=== PATIENT | female | born 1995 | race Caucasian/White ===

== ENCOUNTER 2022-10-11 02:56 | Observation (INO) | payer OTHER, MEDICAID, SELFPAY ==
[2022-10-11] VITALS (18 sets, daily range): BP systolic 118–167; BP diastolic 71–97; PULSE 48–69; RESP 15–24; TEMP 36.4–36.9; O2SAT 90–99; BMI 37.8
--- NOTE | 2022-10-11 02:57 | XRR_ITS ---
PROCEDURE INFORMATION: Exam: XR Chest Exam date and time: 10/11/2022 3:57 AM Age: 27 years old Clinical indication: Pain; Chest pressure; Additional info: Cp TECHNIQUE: Imaging protocol: Radiologic exam of the chest. Views: 1 view. COMPARISON: No relevant prior studies available. FINDINGS: Tubes, catheters and devices: Partially included right-sided ventriculoperitoneal shunt catheter. Lungs: Unremarkable. No consolidation. Pleural spaces: Unremarkable. No pleural effusion. No pneumothorax. Heart/Mediastinum: Unremarkable. No cardiomegaly. Bones/joints: Unremarkable. XR/XR chest 1V portable [id number] IMPRESSION: Negative for acute chest pathology.
--- NOTE | 2022-10-11 03:05 | USR_ITS ---
PROCEDURE INFORMATION: Exam: US Abdomen, Limited; Right Upper Quadrant Exam date and time: 10/11/2022 3:17 AM Age: 27 years old Clinical indication: Abdominal pain; Other: Ruq pain x 3 hrs. TECHNIQUE: Imaging protocol: Real time ultrasound of the abdomen with image documentation. Limited exam focused on the right upper quadrant. COMPARISON: No relevant prior studies available. FINDINGS: Liver: Normal. No masses. Gallbladder: Cholelithiasis. Negative for gallbladder wall thickening. Negative for pericholecystic fluid. Biliary ducts: Normal. No stones. No dilation. Pancreas: Visualized pancreas is unremarkable. Right kidney: Normal. No mass. No hydronephrosis. Aorta: Abdominal aorta is nonaneurysmal. Inferior vena cava: Normal diameter IVC. Portal venous: Portal vein is patent with flow direction. US/US gall bladder [id number] IMPRESSION: Cholelithiasis. No convincing secondary findings of acute cholecystitis.
--- NOTE | 2022-10-11 03:06 | ECG_ITS ---
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 Measurements Intervals [place] Rate: 69 P: 21 NE: 154 QRS: 22 QRSD: 82 T: 30 QT: 414 QTc: 446 Interpretive Statements SINUS RHYTHM No previous ECG available for comparison Electronically Signed On 10-12-2022 0:28:48 CDT by Blanca Chang M.D. [id number]
--- NOTE | 2022-10-11 03:06 | W.ED.ABDPA2 ---
HPI - Abdominal Pain General: Chief Complaint: Abdominal Pain Stated Complaint: chest discomfort, left abdomen pain Time Seen by Provider: 10/11/22 02:57 Source: patient Mode of arrival: ambulatory Limitations: no limitations History of Present Illness: 27-year-old female states she been having some abdominal pain over the last 2 to 3 hours. States pain is in her right upper quadrant and epigastric region. She states pain is sharp in nature she rates it an 8 out of 10 states it does radiate to her chest. She denies any worsening improving factors no history of abdominal surgeries. No diarrhea. Associated Symptoms: Reports nausea; Denies chills, dysuria and fever(s) Review of Systems Const: Denies: fever(s), chills, body aches or change in appetite Eyes: Denies: eye discomfort ENMT: Denies: throat pain or dental pain Card: Reports: chest pain Resp: Denies: dyspnea GI: Reports: abdominal pain and nausea : Denies: dysuria Musc: Denies: neck pain or back pain Skin/Breast: Denies: rash All/Imm: Denies: urticaria PFSH ED PFSH: Medical History (Updated 10/11/22 @ 04:49 by Chip Solorzano MD) No pertinent past medical history Social History (Updated 10/11/22 @ 03:06 by Chip Solorzano MD) Alcohol intake: never Physical Exam Const: COMMON NORMALS: no acute distress, patient oriented x3 and healthy appearing HENMT: COMMON NORMALS: normocephalic and atraumatic HEAD & SCALP: normocephalic and atraumatic Eye: COMMON NORMALS: conjunctivae normal CONJUNCTIVA: Yes conjunctivae normal Neck/C-Spine: COMMON NORMALS: full ROM and supple Chest: COMMONS NORMALS: normal inspection of the chest and normal palpation of entire chest wall Resp: COMMON NORMALS: normal respiratory effort, No retractions, No use of accessory muscles and clear to auscultation bilaterally AUSCULTATION: clear to auscultation bilaterally Cardio: COMMON NORMALS: regular rate, regular rhythm and No murmurs present (Cardio) RATE: regular rate RHYTHM: regular rhythm GI: COMMON NORMALS: Normal to inspection, nondistended, normoactive bowel sounds present, Soft to palpation and no masses PALPATION: Yes Soft to palpation and Yes Tenderness to palpation present (GI) Details: RUQ Extremity: COMMON NORMALS: normal to inspection and full ROM Neuro: COMMON NORMALS: patient oriented x3, moves all extremities and no focal motor deficits Psych: COMMON NORMALS: mental status grossly normal, Normal thought process present and cooperative THOUGHT PROCESS: Normal thought process present Skin: COMMON NORMALS: no rashes or lesions noted and no wounds GENERAL SKIN EXAM: no rashes or lesions noted Course Vital Signs: Vital signs: Vital Signs Temperature 97.5 F L 10/11/22 03:06 Pulse Rate 68 10/11/22 04:30 Respiratory Rate 19 H 10/11/22 04:30 Blood Pressure 158/89 10/11/22 04:30 Pulse Oximetry 96 10/11/22 04:30 Oxygen Delivery Me thod Nasal Cannula 10/11/22 04:30 Oxygen Flow Rate 2.5 10/11/22 04:30 MDM - Abdominal Pain Medical Decision Making Patient presents with abdominal pain her ultrasound here does show multiple gallstones no wall thickening. White count here is normal she is afebrile she is continue to have severe pain here even after IV meds. I spoke to the surgeon on-call Dr. Downey and will admit for observation at this time. Lab Data 10/11/22 03:10 10/11/22 03:10 Labs/Radiology: Laboratory Results WBC 11.1 10^3/uL (4.0-10.0) H 10/11/22 03:10 RBC 5.14 10^6/uL (4.1-5.3) 10/11/22 03:10 Hgb 15.0 g/dL (11.5-15.3) 10/11/22 03:10 Hct 43.5 % (37.0-47.0) 10/11/22 03:10 MCV 84.6 fl (81-99) 10/11/22 03:10 MCH 29.2 pg (28.0-34.0) 10/11/22 03:10 MCHC 34.5 g/dL (30.0-36.0) 10/11/22 03:10 RDW 12.8 % (12.1-15.1) 10/11/22 03:10 Plt Count 197 10^3/cmm (130-400) 10/11/22 03:10 MPV 11.8 fL (7.4-10.4) H 10/11/22 03:10 Neut % (Auto) 73.3 % 10/11/22 03:10 Lymph % (Auto) 20.9 % 10/11/22 03:10 [place] % (Auto) 4.6 % 10/11/22 03:10 Eos % (Auto) 0.3 % 10/11/22 03:10 Baso % (Auto) 0.4 % 10/11/22 03:10 Neut # (Auto) 8.12 10^3/uL (1.8-7.7) H 10/11/22 03:10 Lymph # (Auto) 2.3 10^3/uL (0.8-4.8) 10/11/22 03:10 [place] # (Auto) 0.5 10^3/uL (0.2-0.9) 10/11/22 03:10 Eos # (Auto) 0.0 10^3/uL (0.0-0.8) 10/11/22 03:10 Baso # (Auto) 0.0 10^3/uL (0.0-0.1) 10/11/22 03:10 Nucleated RBC % (auto) 0 % 10/11/22 03:10 Nucleated RBCs # 0.0 /100WBC 10/11/22 03:10 Sodium 136 mmol/L (136-145) 10/11/22 03:10 Potassium 4.4 mmol/L (3.5-5.1) 10/11/22 03:10 Chloride 104 mmol/L (98-107) 10/11/22 03:10 Carbon Dioxide 17 mmol/L (22-29) L 10/11/22 03:10 Anion Gap 19.4 (5-19) H 10/11/22 03:10 BUN 11 mg/dL (6-20) 10/11/22 03:10 Creatinine 0.6 mg/dL (0.5-0.9) 10/11/22 03:10 GFR Calculation 118.2 mL/min (90-130) 10/11/22 03:10 Glucose 174 mg/dL (65-115) H 10/11/22 03:10 Calculated Osmolality 286 mOsm/kg (285-295) 10/11/22 03:10 Calcium 9.9 mg/dL (8.5-10.5) 10/11/22 03:10 Total Bilirubin 0.4 mg/dL (0.15-1.2) 10/11/22 03:10 AST 25 U/L (0-32) 10/11/22 03:10 ALT 54 U/L (0-33) H 10/11/22 03:10 Alkaline Phosphatase 92 U/L (35-105) 10/11/22 03:10 Troponin T Baseline 6 ng/L (0-10) 10/11/22 03:10 Total Protein 7.4 g/dL (6.6-8.7) 10/11/22 03:10 Albumin 4.2 g/dL (3.5-5.2) 10/11/22 03:10 Globulin 3.2 g/dL (1.3-4.6) 10/11/22 03:10 Lipase 29 U/L (13-60) 10/11/22 03:10 HCG, Qual Negative (Negative) 10/11/22 03:10 Urine Color Yellow (Yellow) 10/11/22 04:17 Urine Appearance Clear (CLEAR) 10/11/22 04:17 Urine pH 5 (5-7) 10/11/22 04:17 Ur Specific [place] 1.020 (1.005-1.030) 10/11/22 04:17 Urine Protein Neg (Negative) 10/11/22 04:17 Urine Glucose (UA) 1+ (Normal) H 10/11/22 04:17 Urine Ketones Negative (Negative) 10/11/22 04:17 Urine Blood Neg (Negative) 10/11/22 04:17 Urine Nitrate Negative (Negative) 10/11/22 04:17 Urine Bilirubin Neg (Negative) 10/11/22 04:17 Urine Urobilinogen Neg mg/dL (Negative) 10/11/22 04:17 Ur Leukocyte Esterase Negative (Negative) 10/11/22 04:17 EKG Data EKG 1: EKG interpretation date: 10/11/22 EKG interpretation time: 03:06 Interpretation: nsr hr [address] or t wave abnormalities qrs 82 qtc 434 Discharge Plan Discharge Patient Disposition: Admitted As Inpatient Clinical Impression: Abdominal pain, Gallstone Coding Level of Care Code 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
[2022-10-11] MEDS: morphine 4 mg/mL SDV 1 mL IVP ×4 (03:14→12:00)
[2022-10-11] MEDS: ondansetron 2 mg/ML SDV 2 mL 4 MG IVP ×2 (03:14→15:53)
[2022-10-11 03:15] LABS: Basophils % 0.4 %; Eosinophils % 0.3 %; Hematocrit 43.5 % (37.0-47.0); Lymphocytes # 2.3 10^3/uL (0.8-4.8); Lymphocytes % 20.9 %; Mean Corpuscular HGB Conc 34.5 g/dL (30.0-36.0); Mean Corpuscular Hemoglobin 29.2 pg (28.0-34.0); Mean Corpuscular Volume 84.6 fl (81-99); Mean Platelet Volume 11.8 fL (7.4-10.4); Monocytes # 0.5 10^3/uL (0.2-0.9); Monocytes % 4.6 %; Neutrophils # 8.12 10^3/uL (1.8-7.7); Neutrophils % 73.3 %; Nucleated Red Blood Cells % 0 %; Platelet Count 197 10^3/cmm (130-400); Red Blood Count 5.14 10^6/uL (4.1-5.3); Red Cell Distribution Width 12.8 % (12.1-15.1); White Blood Count 11.1 10^3/uL (4.0-10.0)
[2022-10-11] MEDS: lidocaine 2% viscous 15 ML, aluminum-mag hydrox-simethicon 30 ML, sucralfate oral liq 1 GM PO (03:15)
[2022-10-11 03:32] LABS: Alanine Aminotransferase 54 U/L (0-33); Albumin Level 4.2 g/dL (3.5-5.2); Alkaline Phosphatase 92 U/L (35-105); Anion Gap 19.4 (5-19); Aspartate Amino Transferase 25 U/L (0-32); Blood Urea Nitrogen 11 mg/dL (6-20); Calcium 9.9 mg/dL (8.5-10.5); Carbon Dioxide 17 mmol/L (22-29); Chloride 104 mmol/L (98-107); Globulin 3.2 g/dL (1.3-4.6); Glomerular Filtration Rate 118.2 mL/min (90-130); Glucose 174 mg/dL (65-115); HCG, Serum Qual Negative (Negative); Lipase 29 U/L (13-60); Osmolality Calculated 286 mOsm/kg (285-295); Potassium 4.4 mmol/L (3.5-5.1); Sodium 136 mmol/L (136-145); Total Bilirubin 0.4 mg/dL (0.15-1.2); Total Protein 7.4 g/dL (6.6-8.7)
[2022-10-11 03:39] LABS: Troponin(5th) Baseline 6 ng/L (0-10)
[2022-10-11 04:26] LABS: Add Urine Microscopic? NO; Charge for UA Resulting for Rev
[2022-10-11 04:45] LABS: Bilirubin Urine Neg (Negative); Blood Urine Neg (Negative); Glucose Urine UA 1+ (Normal); Ketones Urine Negative (Negative); Leukocyte Esterase Urine Negative (Negative); Nitrate Urine Negative (Negative); Protein Urine Neg (Negative); Urine Appearance Clear (CLEAR); Urine Color Yellow (Yellow); Urobilinogen Urine Neg (Negative); pH Urine 5 (5-7)
[2022-10-11] MEDS: HYDROmorphone 1 mg/mL INJ 1 mL 0.5 MG IVP (04:59)
[2022-10-11] MEDS: piperacillin-tazobactam 3.375 GM in sodium chloride 0.9% (plus) 50 ML IV ×3 (04:59→15:50)
--- NOTE | 2022-10-11 05:54 | PC.NURSE ---
Vital Signs: 145/90 Blood Pressure 52 pulse 99 O2 on 1L 97.8 Orally
--- NOTE | 2022-10-11 05:55 | PC.NURSE ---
Vital Signs: 145/90 Blood Pressure 52 pulse 99 O2 on 1L 97.8 Orally 16 respirations Patient laying supine on back.
[2022-10-11] MEDS: sodium chloride 0.9% 1,000 ML 100 ML IV (06:40)
[2022-10-11 07:03] LABS: Glucose Point of Care 164 mg/dL (70-110)
--- NOTE | 2022-10-11 08:49 | ECG_ITS ---
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 Measurements Intervals [place] Rate: 46 P: 30 UT: 174 QRS: 19 QRSD: 79 T: 57 QT: 474 QTc: 416 Interpretive Statements SINUS BRADYCARDIA Compared to ECG 10/11/2022 03:06:07 Sinus rhythm no longer present Electronically Signed On 10-12-2022 0:29:13 CDT by Blanca Chang M.D. [email or web address]ont[facility] campusOdyssey [email or web address]/store/[id number]
[2022-10-11 12:29] LABS: Glucose Point of Care 126 mg/dL (70-110)
--- NOTE | 2022-10-11 13:31 | CTR_ITS ---
PROCEDURE INFORMATION: Exam: CT Abdomen And Pelvis With Contrast Exam date and time: 10/11/2022 3:29 PM Age: 27 years old Clinical indication: Abdominal pain; Additional info: Abdominal pain, iv and oral TECHNIQUE: Imaging protocol: Computed tomography of the abdomen and pelvis with contrast. Radiation optimization: All CT scans at this facility use at least one of these dose optimization techniques: automated exposure control; mA and/or kV adjustment per patient size (includes targeted exams where dose is matched to clinical indication); or iterative reconstruction. Contrast material: OMNI 350; Contrast volume: 100 ml; Contrast route: INTRAVENOUS (IV); Other contrast: Oral, OMNI 350, 50; REPORTING DATA: Count of CT and Cardiac NM exams in prior 12 months: This patient has received 0 known CTs and 0 known cardiac nuclear medicine studies in the 12 months prior to the current study. COMPARISON: US gall bladder [id number] 10/11/2022 3:17 AM RADIATION DOSE METRICS: Total DLP (mGy-cm): 1062.47 FINDINGS: Tubes, catheters and devices: A CLOTH EXAMINER shunt catheter is seen on the right side. Lungs: Mild basilar atelectasis is suggested. Liver: Normal. No mass. Gallbladder and bile ducts: Gallstones on gallbladder ultrasound are not readily identified on CT exam. Gallbladder is otherwise unremarkable. No biliary ductal dilatation. Pancreas: Normal. No ductal dilation. Spleen: Normal. No splenomegaly. Adrenal glands: Normal. No mass. Kidneys and ureters: Normal. No hydronephrosis. Stomach and bowel: The cecum extends into the lower right pelvis without definite identification of the appendix without pericecal inflammatory change. Underdistended or collapsed distal ileum versus mild submucosal edema. No abnormal adjacent mesenteric stranding. Remainder of the bowel appears unremarkable without mucosal thickening or wall thickening. No bowel dilatation or obstruction. Appendix: See Stomach and bowel finding. Intraperitoneal space: No free air. Vasculature: Unremarkable. No abdominal aortic aneurysm. Lymph nodes: Unremarkable. No enlarged lymph nodes. Urinary bladder: Unremarkable as visualized. Reproductive: Oval-shaped hypodense focus of fluid density is seen within the posterior right adnexal region suggestive of right ovarian cyst approximately 6.5 x 4.5 x 4 cm. Mild free fluid is seen in the cul-de-sac as well. Bones/joints: No acute osseous abnormality. Soft tissues: Tiny umbilical hernia of fat. CT/CT abdomen pelvis w con* [id number] IMPRESSION: 1. CLOTH EXAMINER shunt catheter is seen on the right side. 2. Mild basilar atelectasis. 3. Gallstones that were seen on gallbladder ultrasound are not readily identified with CT exam. Gallbladder is otherwise unremarkable and no biliary ductal dilatation. 4. Suggestion of hypodense cyst of the right ovary within the posterior right adnexal region of approximally 6.5 x 4.5 x 4 cm. Along with mild free fluid within the dependent pelvis. 5. Underdistended or collapsed distal ileum versus mild submucosal edema, without adjacent mesenteric stranding. Mild inflammation not excluded.
[2022-10-11] MEDS: pantoprazole 40 mg SDV IVP (13:56)
[2022-10-11] MEDS: HYDROmorphone 1 mg/mL INJ 1 mL IVP ×2 (13:56→17:14)
[2022-10-11] MEDS: iohexol 350 mg/mL 500 mL Btl (per mL) PO (15:17)
[2022-10-11] MEDS: iohexol 350 mg/mL 500 mL Btl (per mL) IV (15:39)
[2022-10-11] MEDS: sodium chloride 0.9% 1,000 ML 125 ML IV (15:48)
[2022-10-11 16:58] LABS: Glucose Point of Care 115 mg/dL (70-110)
[2022-10-11] MEDS: sucralfate 1 gm/10 mL Oral Liq UDC PO ×2 (17:10→21:11)
--- NOTE | 2022-10-11 17:40 | P.HP_ITS ---
Providers/Chief Complaint Admitting Physician: Doron Downey DO Primary Care Provider: DANIEL Leal Chief Complaint: chest discomfort, left abdomen pain History of Present Illness Yessica Michel is a 27 year old female who presented to the hospital with sudden onset epigastric and left upper quadrant pain. She reports that this is the fourth time this is happened in the last 6 months. It wakes her up at night with severe stabbing pain. The pain radiates to her back. She reports nausea but denies any emesis. Palpation makes the pain worse. Nothing makes pain bet ter. Denies any diarrhea or constipation. Gallbladder ultrasound reveals only cholelithiasis and CT the abdomen reveals a right ovarian cyst with fluid in the cul-de-sac. She has a history of PCOS. Review of Systems General: Reports: 10 or more systems reviewed and unremarkable except in HPI and below Medications/Allergies Home Medications Medication Instructions Recorded Confirmed Last Taken Type amoxicillin 875 mg-potassium 1 tab PO BID 10/11/22 10/11/22 Unknown History clavulanate 125 mg tablet ergocalciferol (vitamin D2) 1,250 50,000 unit PO Q7D 10/11/22 10/11/22 Unknown History mcg (50,000 unit) capsule loratadine 10 mg tablet 10 mg PO DAILY 10/11/22 10/11/22 Unknown History norgestimate 0.25 mg-ethinyl 1 tab PO QAM 10/11/22 10/11/22 Unknown History estradiol 35 mcg tablet (Josephine) propylhexedrine (Benzedrex nasal 2 inh intranasal Q4H PRN Allergy 10/11/22 10/11/22 Unknown History inhaler) Symptoms sertraline 50 mg tablet 75 mg PO QAM 10/11/22 10/11/22 Unknown History tirzepatide 2.5 mg/0.5 mL 2.5 mg SUBCUT Q7D 10/11/22 10/11/22 Unknown History subcutaneous pen injector (Mounjaro) Allergies Allergy/AdvReac Type Severity Reaction Status Date / Time glimepiride Allergy ADR-Shakine Verified 10/11/22 09:05 ss glyburide Allergy ADR-Shakine Verified 10/11/22 09:05 ss PFSH Acute PFSH: Medical History No pertinent past medical history Social History Alcohol intake: never Vitals/I&O/Wt Last Vital Signs Temp 97.5 F L 10/11/22 03:06 Pulse 48 L 10/11/22 14:00 Resp 18 10/11/22 17:14 BP 140/77 10/11/22 05:26 Pulse Ox 96 10/11/22 08:24 O2 Del Method Nasal Cannula 10/11/22 06:03 O2 Flow Rate 2 10/11/22 08:00 10/11/22 10/11/22 10/11/22 06:59 14:59 22:59 Intake Total 50 / 50 50 / 50 913.333 / 963.333 Balance 50 / 50 50 / 50 913.333 / 963.333 Weight last 48 hrs Weight 223 lb Weight 220 lb Physical Exam Narrative: General : Patient is well developed , no acute distress, oriented x3 Head : Normal cephalic, a-traumatic. Ears : Pinnae and external canal are normal. Hearing is normal. Eyes : PERRLA, Sclera and injection are normal. No conjunctival discharge. Nose : Mucous membranes are without erythema. Throat : buccal mucosa is normal, gums are without significant recession or hypertrophy. Lungs : Equal chest rise bilaterally, no use of accessory muscles, trachea is midline. Cor : Rate and rhythm are normal. Abdomen : Soft, ND, tender over epigastrium and left upper quadrant, no g/r/m Extremities : No edema, no cyanosis or clubbing, dorsalis pedis pulses are present bilaterally, non-tender to palpation of calves. Upper extremities are normal bilaterally. Back : non-tender to palpation, no CVA tenderness. Neuro : CN II - XII intact, Upper and lower extremities have equal and full strength Data 10/12/22 07:50 10/12/22 07:50 A&P Assessment and plan (1) Abdominal pain: (2) Ruptured ovarian cyst: Plan Observation Pain control We will reevaluate in the morning Attestations Medical Necessity Statement*: Patient reports at least 1 night in the hospital for pain control and observation to be certain that she is not having acute cholecystitis. Coding Level of Care Code Acute Code for [facility] Diagnoses Abdominal pain R10.9 Ruptured ovarian cyst N83.209
[2022-10-11 20:14] LABS: Glucose Point of Care 121 mg/dL (70-110)
[2022-10-12] VITALS (11 sets, daily range): BP systolic 102–149; BP diastolic 64–82; PULSE 50–89; RESP 15–20; TEMP 36.6–36.9; O2SAT 94–98
[2022-10-12] MEDS: sodium chloride 0.9% 1,000 ML 125 ML IV ×2 (00:06→06:37)
[2022-10-12] MEDS: piperacillin-tazobactam 3.375 GM in sodium chloride 0.9% (plus) 50 ML IV ×2 (00:06→09:34)
[2022-10-12] MEDS: HYDROmorphone 1 mg/mL INJ 1 mL IVP ×4 (01:23→14:23)
[2022-10-12] MEDS: pantoprazole 40 mg SDV IVP ×2 (01:23→14:23)
[2022-10-12] MEDS: ondansetron 2 mg/ML SDV 2 mL 4 MG IVP ×2 (01:24→10:15)
[2022-10-12 06:10] LABS: Glucose Point of Care 129 mg/dL (70-110)
[2022-10-12] MEDS: sucralfate 1 gm/10 mL Oral Liq UDC PO ×2 (06:37→10:14)
[2022-10-12 08:09] LABS: Basophils % 0.2 %; Eosinophils % 0.3 %; Hematocrit 40.5 % (37.0-47.0); Hemoglobin 13.8 g/dL (11.5-15.3); Lymphocytes # 2.2 10^3/uL (0.8-4.8); Lymphocytes % 22.9 %; Mean Corpuscular HGB Conc 34.1 g/dL (30.0-36.0); Mean Corpuscular Hemoglobin 29.8 pg (28.0-34.0); Mean Corpuscular Volume 87.5 fl (81-99); Mean Platelet Volume 11.8 fL (7.4-10.4); Monocytes # 0.7 10^3/uL (0.2-0.9); Monocytes % 6.9 %; Neutrophils % 69.4 %; Nucleated Red Blood Cells % 0 %; Platelet Count 161 10^3/cmm (130-400); Red Blood Count 4.63 10^6/uL (4.1-5.3); Red Cell Distribution Width 13.4 % (12.1-15.1); White Blood Count 9.7 10^3/uL (4.0-10.0)
[2022-10-12 08:24] LABS: Anion Gap 14.2 (5-19); Blood Urea Nitrogen 8 mg/dL (6-20); Calcium 8.6 mg/dL (8.5-10.5); Carbon Dioxide 22 mmol/L (22-29); Chloride 105 mmol/L (98-107); Glomerular Filtration Rate 118.2 mL/min (90-130); Glucose 129 mg/dL (65-115); Osmolality Calculated 284 mOsm/kg (285-295); Potassium 4.2 mmol/L (3.5-5.1); Sodium 137 mmol/L (136-145)
--- NOTE | 2022-10-12 09:41 | PC.NURSE ---
tenderness pain in ovary areas.
--- NOTE | 2022-10-12 10:52 | PC.CHAP ---
Pastoral Care Encounter/Spiritual Assessment Type of Contact [] Declined typesetting machine operator/tender visit [] Patient/Family/Request visit [] Outpatient visit [] Follow-up visit [] Physician referral [] Code/Alert [x] Routine visit [] Staff referral [] Actively dying [] Patient sleeping [] Family support [] [] Out of room [] Palliative care [] [] Receiving care in room [] Pre-surgical visit [] Trauma [] Long length of stay [] ICU visit [] Other: Relational/Emotional Strength x [] Patient feels connected with others/family/visitors/staff [] Distress [] Loneliness/isolation [] Abandonment Spirituality of Patient [] Person of Julia [] Attends Lutheran of their Julia [x] Believes in Prayer [] Reads Bible or Yazdanism materials [] There are Spiritual issues to be addressed Machine Attendant Interventions [x] Prayer [] Active listening [] Non-anxious presence [] Spiritual/emotional support [] Crisis/trauma care [] Spiritual counseling [] Bereavement support [] Provided bereavement packet [] Provided Bible/devotional materials [] Provided toy/stuffed animal, coloring book to patient or family member [] Provided Communion [] Anointing/[place] [] Salvation [x] Completed spiritual assessment [] Other: Impact on Illness or Injury [] Angry [] Fearful [] Anxious [] Often cries [] Exhaustion [] Unable to work [] Unable to attend denominational [] Unable to walk/stand [] Unable to read [] Unable to drive [] Unable to eat/drink [] Unable to sleep [] Unable to be with family [] Patient intubated [] Other: Summary Time spent with patient 10 min
[2022-10-12 11:30] LABS: Glucose Point of Care 111 mg/dL (70-110)
--- NOTE | 2022-10-12 15:07 | P.DS_ITS ---
Discharge Providers Date of Admission: 10/11/22 05:03 Date of Discharge: October 12, 2022 Attending Provider at Admission: Doron Downey DO Attending Provider at Discharge: Doron Downey DO Primary Care Provider: DANIEL Leal Diagnoses at Discharge Discharge Diagnosis (1) Abdominal pain: Status: Acute (2) Ruptured ovarian cyst: Status: Acute Reason for Visit Reason for Visit: chest discomfort, left abdomen pain Hospital Course Hospital Course This is a very pleasant 27-year-old female who presented to the hospital with sudden onset abdominal pain. Original work-up in the ER indicated possible a cute calculus cholecystitis. Further work-up revealed likely a ruptured ovarian cyst causing significant pain. She was discharged home in good condition. Physical Exam Narrative: General : Patient is well developed , no acute distress, oriented x3 Head : Normal cephalic, a-traumatic. Ears : Pinnae and external canal are normal. Hearing is normal. Eyes : PERRLA, Sclera and injection are normal. No conjunctival discharge. Nose : Mucous membranes are without erythema. Throat : buccal mucosa is normal, gums are without significant recession or hypertrophy. Lungs : Equal chest rise bilaterally, no use of accessory muscles, trachea is midline. Cor : Rate and rhythm are normal. Abdomen : Soft, ND, mild left upper quadrant tenderness, no g/r/m Extremities : No edema, no cyanosis or clubbing, dorsalis pedis pulses are present bilaterally, non-tender to palpation of calves. Upper extremities are normal bilaterally. Back : non-tender to palpation, no CVA tenderness. Neuro : CN II - XII intact, Upper and lower extremities have equal and full strength Discharge Data Studies Completed and Pending Completed Studies During Hospitalization Category Date Time Status CT abdomen pelvis w con* [id number] Stat Cat Scan 10/11/22 13:31 Completed XR chest 1V portable [id number] Stat Exams 10/11/22 02:57 Completed US gall bladder [id number] Stat Ultrasound 10/11/22 03:05 Completed Radiology Impressions Chest X-Ray 10/11/22 02:57 IMPRESSION: Negative for acute chest pathology. Gallbladder Ultrasound 10/11/22 03:05 IMPRESSION: Cholelithiasis. No convincing secondary findings of acute cholecystitis. Abdomen/Pelvis CT 10/11/22 13:31 IMPRESSION: 1. CAD APPLICATION SUPPORT SPECIALIST shunt catheter is seen on the right side. 2. Mild basilar atelectasis. 3. Gallstones that were seen on gallbladder ultrasound are not readily identified with CT exam. Gallbladder is otherwise unremarkable and no biliary ductal dilatation. 4. Suggestion of hypodense cyst of the right ovary within the posterior right adnexal region of approximally 6.5 x 4.5 x 4 cm. Along with mild free fluid within the dependent pelvis. 5. Underdistended or collapsed distal ileum versus mild submucosal edema, without adjacent mesenteric stranding. Mild inflammation not excluded. Laboratory Results WBC 9.7 10^3/uL (4.0-10.0) 10/12/22 07:50 RBC 4.63 10^6/uL (4.1-5.3) 10/12/22 07:50 Hgb 13.8 g/dL (11.5-15.3) 10/12/22 07:50 Hct 40.5 % (37.0-47.0) 10/12/22 07:50 MCV 87.5 fl (81-99) 10/12/22 07:50 MCH 29.8 pg (28.0-34.0) 10/12/22 07:50 MCHC 34.1 g/dL (30.0-36.0) 10/12/22 07:50 RDW 13.4 % (12.1-15.1) 10/12/22 07:50 Plt Count 161 10^3/cmm (130-400) 10/12/22 07:50 MPV 11.8 fL (7.4-10.4) H 10/12/22 07:50 Neut % (Auto) 69.4 % 10/12/22 07:50 Lymph % (Auto) 22.9 % 10/12/22 07:50 [place] % (Auto) 6.9 % 10/12/22 07:50 Eos % (Auto) 0.3 % 10/12/22 07:50 Baso % (Auto) 0.2 % 10/12/22 07:50 Neut # (Auto) 6.70 10^3/uL (1.8-7.7) 10/12/22 07:50 Lymph # (Auto) 2.2 10^3/uL (0.8-4.8) 10/12/22 07:50 [place] # (Auto) 0.7 10^3/uL (0.2-0.9) 10/12/22 07:50 Eos # (Auto) 0.0 10^3/uL (0.0-0.8) 10/12/22 07:50 Baso # (Auto) 0.0 10^3/uL (0.0-0.1) 10/12/22 07:50 Nucleated RBC % (auto) 0 % 10/12/22 07:50 Nucleated RBCs # 0.0 /100WBC 10/12/22 07:50 Sodium 137 mmol/L (136-145) 10/12/22 07:50 Potassium 4.2 mmol/L (3.5-5.1) 10/12/22 07:50 Chloride 105 mmol/L (98-107) 10/12/22 07:50 Carbon Dioxide 22 mmol/L (22-29) 10/12/22 07:50 Anion Gap 14.2 (5-19) 10/12/22 07:50 BUN 8 mg/dL (6-20) 10/12/22 07:50 Creatinine 0.6 mg/dL (0.5-0.9) 10/12/22 07:50 GFR Calculation 118.2 mL/min (90-130) 10/12/22 07:50 Glucose 129 mg/dL (65-115) H 10/12/22 07:50 POC Glucose 111 mg/dL (70-110) H 10/12/22 11:19 Calculated Osmolality 284 mOsm/kg (285-295) L 10/12/22 07:50 Calcium 8.6 mg/dL (8.5-10.5) 10/12/22 07:50 Magnesium 2.0 mg/dL (1.7-2.3) 10/12/22 07:50 Total Bilirubin 0.4 mg/dL (0.15-1.2) 10/11/22 03:10 AST 25 U/L (0-32) 10/11/22 03:10 ALT 54 U/L (0-33) H 10/11/22 03:10 Alkaline Phosphatase 92 U/L (35-105) 10/11/22 03:10 Troponin T Baseline 6 ng/L (0-10) 10/11/22 03:10 Total Protein 7.4 g/dL (6.6-8.7) 10/11/22 03:10 Albumin 4.2 g/dL (3.5-5.2) 10/11/22 03:10 Globulin 3.2 g/dL (1.3-4.6) 10/11/22 03:10 Lipase 29 U/L (13-60) 10/11/22 03:10 HCG, Qual Negative (Negative) 10/11/22 03:10 Urine Color Yellow (Yellow) 10/11/22 04:17 Urine Appearance Clear (CLEAR) 10/11/22 04:17 Urine pH 5 (5-7) 10/11/22 04:17 Ur Specific [place] 1.020 (1.005-1.030) 10/11/22 04:17 Urine Protein Neg (Negative) 10/11/22 04:17 Urine Glucose (UA) 1+ (Normal) H 10/11/22 04:17 Urine Ketones Negative (Negative) 10/11/22 04:17 Urine Blood Neg (Negative) 10/11/22 04:17 Urine Nitrate Negative (Negative) 10/11/22 04:17 Urine Bilirubin Neg (Negative) 10/11/22 04:17 Urine Urobilinogen Neg mg/dL (Negative) 10/11/22 04:17 Ur Leukocyte Esterase Negative (Negative) 10/11/22 04:17 Procedures Performed None Vitals Last Vital Signs Temp 97.9 F 10/12/22 12:00 Pulse 70 10/12/22 12:00 Resp 18 10/12/22 14:23 BP 102/64 10/12/22 12:00 Pulse Ox 98 10/12/22 12:00 O2 Del Method Nasal Cannula 10/12/22 04:00 O2 Flow Rate 2 10/11/22 08:00 Discharge Plan Discharge Patient Disposition: Home Condition: Stable Prescriptions: New oxycodone-acetaminophen 5-325 mg tablet 1 tab PO Q6H PRN (Reason: pain) Qty: 14 0RF Continued Josephine 0.25-35 mg-mcg tablet 1 tab PO QAM Benzedrex Inhaler 2 inh INTRANASAL Q4H PRN (Reason: Allergy Symptoms) ergocalciferol (vitamin D2) 1,250 mcg (50,000 unit) capsule 50,000 unit PO Q7D Rx Instructions: on mon sertraline 50 mg tablet 75 mg PO QAM loratadine 10 mg tablet 10 mg PO DAILY Rx Instructions: (rx filled 10/10/22 not started as of 10/11/22) amoxicillin-pot clavulanate 875-125 mg tablet 1 tab PO BID Rx Instructions: for 10 days (rx filled 10/10/22 not started as of 10/11/22) Mounjaro 2.5 mg/0.5 mL pen injector 2.5 mg SUBCUT Q7D Rx Instructions: on mon Discharge Orders: Discharge Order (Routine); Ordered 10/12/22 Ordered By: Doron Downey Referrals: Mathew Davidson FNP [Primary Care Provider] - 4-7 days Discharge Diet: Advance as tolerated Discharge Activity: Resume usual activity Patient Instructions: Abdominal Pain (ED), Opioid Safety Discharge Attestations Time Spent in Discharge Care*: less than 30 min Quality Metrics Clinical Quality Measures [ No reported AMI, CVA or VTE this stay] Coding Level of Care Code Acute Code for Chg Fwd Diagnoses Abdominal pain R10.9 Ruptured ovarian cyst N83.209
== END 2022-10-12 16:36 | disposition home or self-care (01) ==
LOC: ER 04:49 → MEDSURG 05:03
PROVIDERS: Admitting Provider Surgery; Emergency Provider Emergency Medicine; PCP Nurse Practitioner Family; Visit Provider Surgery
DX: N83.201 Unspecified ovarian cyst, right side (principal); K80.20 Calculus of gallbladder without cholecystitis without obstruction; Z79.899 Other long term (current) drug therapy; R10.11 Right upper quadrant pain; R10.13 Epigastric pain; K66.1 Hemoperitoneum; R11.0 Nausea
CPT/HCPCS: 36415; 36416; 71045; 74177; 76705; 80048; 80053; 81003; 82962; 83690; 83735; 84484; 84703; 85025; 93005; 96374; 96375; 99285; C9113; G0378; J1170; J2270; J2405; J2543; J7030; Q9967

== ENCOUNTER → 2022-11-01 09:06 | Outpatient (BNVA) | payer OTHER, MEDICAID, SELFPAY | PROVIDERS: PCP Nurse Practitioner Family; Visit Provider Obstetrics & Gynecology | DX: R10.9 Unspecified abdominal pain (principal); N83.209 Unspecified ovarian cyst, unspecified side | CPT/HCPCS: 84146; 84443 ==

== ENCOUNTER → 2022-12-01 07:52 | Outpatient (BNVA) | payer OTHER, MEDICAID, SELFPAY | PROVIDERS: PCP Nurse Practitioner Family; Visit Provider Obstetrics & Gynecology | DX: N94.10 Unspecified dyspareunia (principal); N92.6 Irregular menstruation, unspecified | CPT/HCPCS: 76830 ==

== ENCOUNTER → 2023-01-25 07:55 | Outpatient (BNVA) | payer OTHER, MEDICAID, SELFPAY | PROVIDERS: PCP Nurse Practitioner Family; Visit Provider Obstetrics & Gynecology | DX: N92.6 Irregular menstruation, unspecified (principal) | CPT/HCPCS: 76830 ==

== ENCOUNTER 2023-03-16 07:50 | Day surgery (SDC) | payer OTHER, MEDICAID, SELFPAY ==
[2023-03-16] VITALS (21 sets, daily range): BP systolic 107–151; BP diastolic 22–92; PULSE 67–94; RESP 16–20; TEMP 36.1–36.4; O2SAT 91–99; BMI 36.0
--- NOTE | 2023-03-16 00:51 | W.PM.OPSFHP ---
Same Day Surgery H&P Indication for Procedure/HPI DATE OF PROCEDURE: March 16, 2023 CHIEF COMPLAINT/INDICATIONFOR SURGICAL PROCEDURE: right adnexal hydrosalpinx PREOP DIAGNOSIS: right adnexal hydrosalpinx PLANNED PROCEDURE: Operation Date: 03/16/23 09:30 Proposed Procedures p Laparoscopy 14933, Possible salpingo-oophorectomy 53602, possible exploratory laparotomy 17929(Not Applicable) - Konrad Kirk MD s possible Laparoscopic Salpingo Oophorectomy(Not Applicable) - Konrad Kirk MD s possible exploratory laparotomy(Not Applicable) - Konrad Kirk MD 27 y.o. G0 On OCs With abdominal / pelvic pains Pelvic sono showed right adnexal fluid collection c/w hydrosalpinx Now scheduled for laparoscopy, possible salpingo-oophorectomy, possible exploratory laparotomy Medications/Allergies* Home Medications Medication Instructions Recorded Confirmed Type ergocalciferol (vitamin D2) 1,250 50,000 unit PO Q7D 10/11/22 03/15/23 History mcg (50,000 unit) capsule norgestimate 0.25 mg-ethinyl 1 tab PO QAM 10/11/22 03/15/23 History estradiol 35 mcg tablet (Josephine) propylhexedrine (Benzedrex nasal 2 inh intranasal Q4H PRN Allergy 10/11/22 03/15/23 History inhaler) Symptoms sertraline 50 mg tablet 75 mg PO QAM 10/11/22 03/15/23 History semaglutide 0.25 mg or 0.5 mg (2 0.25 mg SUBCUT DIRECTED 02/21/23 03/15/23 History mg/3 mL) subcutaneous pen injector (Ozempic) Allergies/Adverse Reactions Allergy/AdvReac Type Severity Reaction Status Date / Time ethinyl estradiol Allergy Intermediate ALGY-Rash Verified 02/21/23 13:27 [From Pirmella] norethindrone [From Pirmella] Allergy Intermediate ALGY-Rash Verified 02/21/23 13:27 glimepiride Allergy ADR-Shakine Verified 02/21/23 13:24 ss glyburide Allergy ADR-Shakine Verified 02/21/23 13:24 ss Pertinent History/Comorbid Conditions* Medical History (Updated 12/13/22 @ 22:38 by Konrad Kirk MD) No pertinent past medical history Family History (Updated 11/01/22 @ 08:16 by Zarina Nicole) Diabetes Father CAD (coronary artery disease) Father Cancer Grandmother breast, ovarian Denies family history of Psychiatric illness Chronic kidney disease (CKD) Lung disease Hypertension Stroke Social History Alcohol intake: never Pertinent Exam Findings alert, oriented x 3, clear to auscultation bilaterally and regular rate & rhythm Pertinent Data Pelvic sono? 12-01-22? 6.3 x 3.4 x 3.5 cm right adnexal cystic mass, possible ? Hydrosalpinx Repeat pelvic sono done?? 01-25-23?? -?? + persistent right adnexal fluid collection c/w hydrosalpinx Recommendations Surgery/Procedure today Coding Level of Care Code Acute Code for Chg Fwd Diagnoses Time Spent (min) 20
[2023-03-16] MEDS: sodium chloride 0.9% 1,000 ML 30 ML IV (08:30)
--- NOTE | 2023-03-16 08:46 | P.ANESASSM_ITS ---
Pre-Anesthetic Assessment Height/Weight: Height 1.63 m Weight 95.254 kg Temp Pulse Resp BP Pulse Ox O2 Del Method 97 F L 94 18 151/92 96 Room Air 03/16/23 08:13 03/16/23 08:13 03/16/23 08:13 03/16/23 08:13 03/16/23 08:13 03/16/23 08:21 Preop Diagnosis: right adnexal hydrosalpinx Operation Date: 03/16/23 09:30 Proposed Procedures p Laparoscopy 49155, Possible salpingo-oophorectomy 37917, possible exploratory laparotomy 21420(Not Applicable) - Konrad Kirk MD s possible Laparoscopic Salpingo Oophorectomy(Not Applicable) - Konrad Kirk MD s possible exploratory laparotomy(Not Applicable) - Konrad Kirk MD Familial anesthetic complications: None Was Beta Merly taken within 24 hours: N/A Was Clonidine taken within 24 hours: N/A Last intake: Intake Last Liquid Date 03/15/23 Last Liquid Time 22:00 Last Solid Date 03/15/23 Last Solid Time 21:00 Social No alcohol and No tobacco Exam alert, oriented x 3, clear to auscultation bilaterally and regular rate & rhythm Airway Mallampati: Class II Dentition: full 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 for idiopathic intracranial HTN (pseudotumor cerebri) states its working well and had given her no issues, no neurologic symptoms Anesthetic Plan ASA status: 3 Anesthesia: General Risk of > 500 ml blood loss (7ml/kg in children): No Medications/Allergies Home Medications Medication Instructions Recorded Confirmed Last Taken Type ergocalciferol (vitamin D2) 1,250 50,000 unit PO Q7D 10/11/22 03/15/23 03/10/23 History mcg (50,000 unit) capsule norgestimate 0.25 mg-ethinyl 1 tab PO QAM 10/11/22 03/15/23 03/15/23 History estradiol 35 mcg tablet (Josephine) propylhexedrine (Benzedrex nasal 2 inh intranasal Q4H PRN Allergy 10/11/22 03/15/23 Unknown History inhaler) Symptoms sertraline 50 mg tablet 75 mg PO QAM 10/11/22 03/15/23 03/15/23 History methocarbamol 500 mg tablet 500 mg PO BID #60 tabs 11/01/22 03/15/23 03/15/23 Rx semaglutide 0.25 mg or 0.5 mg (2 0.25 mg SUBCUT DIRECTED 02/21/23 03/15/23 03/08/23 History mg/3 mL) subcutaneous pen injector (Ozempic) tramadol 50 mg tablet 50 mg PO BID PRN pain #30 tabs 02/21/23 03/15/23 03/15/23 Rx Allergies Allergy/AdvReac Type Severity Reaction Status Date / Time ethinyl estradiol Allergy Intermediate ALGY-Rash Verified 03/16/23 08:08 [From Pirmella] norethindrone [From Pirmella] Allergy Intermediate ALGY-Rash Verified 03/16/23 08:08 glimepiride Allergy ADR-Shakine Verified 03/16/23 08:08 ss glyburide Allergy ADR-Shakine Verified 03/16/23 08:08 ss Current Medications Generic Name Dose Route Start Last Admin Trade Name Freq PRN Reason Stop Dose Admin Sodium Chloride 1,000 mls @ 30 mls/hr 03/16/23 08:15 03/16/23 08:30 Sodium Chloride 0.9% IV 03/17/23 08:14 30 mls/hr .Q24H ALFREDO Administration PFSH Anesthesia Medical History No pertinent past medical history Family History Father Diabetes CAD (coronary artery disease) Mother No problems noted. Grandmother Cancer breast, ovarian Denies family history of Psychiatric illness Chronic kidney disease (CKD) Lung disease Hypertension Stroke Social History Alcohol intake: never Data Anesthesia Cardiac Studies: No Data to Display
[2023-03-16 09:14] LABS: OR HCG Qualitative Urine Negative (Negative)
--- NOTE | 2023-03-16 09:25 | W.PM.OPSUD ---
Surgery/Procedure H&P Update DATE OF PROCEDURE: March 16, 2023 DATE H&P PERFORMED: 03/16/23 CHANGES TO PREVIOUS DOCUMENTATION: plan for exploratory laparotomy, open possible salpingo-oophorectomy instead of laparoscopic procedure PREOP DIAGNOSIS: right adnexal hydrosalpinx PLANNED PROCEDURE: Operation Date: 03/16/23 09:30 Proposed Procedures p Laparoscopy 90927, Possible salpingo-oophorectomy 47290, possible exploratory laparotomy 64050(Not Applicable) - Konrad Kirk MD s possible Laparoscopic Salpingo Oophorectomy(Not Applicable) - Konrad Kirk MD s possible exploratory laparotomy(Not Applicable) - Konrad Kirk MD
--- NOTE | 2023-03-16 11:05 | PM.OP ---
Operative Report Date of procedure: March 16, 2023 Pre-op diagnosis: right hydrosalpingx Post-op diagnosis: other Post-op diagnosis: right hematosalpingx Post-op findings: normal uterus Normal ovaries Normal left fallopian tube Right fallopian tube enlarged with blood Procedure done: open laparotomy Right salpingectomy Specimens removed/disposition: right fallopian tube Surgeon: Konrad Kirk MD Anesthesia: General Estimated blood loss (mL): 10 Complications: none Condition: stable Disposition: PACU Brief History: 27 y.o. G0 With abdominal / pelvic pains Pelvic sono showed right adnexal fluid collection c/w hydrosalpinx Procedure: Informed consent signed. The patient was taken to the operating room and placed supine on the table. General endotracheal anesthesia was induced. A Keita catheter was placed. The abdomen was then prepped and draped in the usual sterile fashion. A 8 cm Pfannenstiel incision was made and carried down through skin and subcutaneous tissue. The fascia was entered. The fascial incision was extended laterally. The fascia was from the underlying rectus muscles. The rectus muscles were split in the midline. The peritoneum was entered bluntly avoiding underlying organs. An Kyler-O retractor was placed. The pelvis was explored. Normal uterus and ovaries were seen. The left fallopian tube was seen to be normal. The right fallopian tube was seen to be markedly dilated with blood along its entire length. No other abnormalities were seen. A Ligasure device was used to coagulate and cut the mesosalpingx, thereby removing the right fallopian tube. No bleeding was seen. The pelvis was irrigated. The Kyler-O retractor and all wet laps were removed. Lap count was correct x two. The fascia was then closed with a running suture of O-Vicryl. The subcutaneous tissue was irrigated and inspected for hemostasis. Four interrupted stitches of 2-O plain were placed in the subcutaneous tissue. The skin was then closed with Insorb noelle. The Keita catheter was removed. The patient was then awakened and taken to the recovery room. Postoperative condition: Stable EBL: 10 cc Complications: none Sponge, needles, and instruments counts were correct x two
[2023-03-16] MEDS: fentaNYL 50 mcg/mL INJ 2mL IVP (12:19)
[2023-03-16] MEDS: HYDROmorphone 1 mg/mL INJ 1 mL 0.5 MG IVP ×2 (12:39→12:51)
[2023-03-16] MEDS: oxyCODONE-APAP 10-325 mg Tablet 1 TAB PO (13:26)
--- NOTE | 2023-03-16 15:15 | ANE.PACU2 ---
Inpatient post-anesthesia follow up: Airway intact: Yes Vital signs: Temperature 97.2 F Pulse Rate 83 Respiratory Rate 18 Blood Pressure 112/72 Pulse Oximetry 94 Oxygen Delivery Me thod Room Air Oxygen Flow Rate 6 Fraction of Inspir ed Oxygen Hydration adequate: Yes Nausea and vomiting: No Pain level: 1 Mental status: Baseline
[2023-03-20 05:33] LABS: Glucose Point of Care 134 mg/dL (70-110)
== END 2023-03-16 15:15 | disposition home or self-care (01) ==
PROVIDERS: Anesthesiology; PCP Nurse Practitioner Family; Visit Provider Obstetrics & Gynecology
PROC: (CPT 49320; principal; 2023-03-16 09:10)
DX: N70.11 Chronic salpingitis (principal)
CPT/HCPCS: 58700; 36416; 51702; 81025; 82962; 84703; 88302; J0131; J1100; J1170; J1885; J2250; J2405; J2704; J2710; J3010; J3490; J7030